=== PATIENT | male | born 1935 | race Caucasian/White ===

== ENCOUNTER 2017-04-23 10:46 | Day surgery (SDC) | payer OTHER ==
[~2017-04-23] VITALS: Ht 175.3 cm; Wt 76.6 kg
[~2017-04-23 10:46] MED LIST: ATORVASTATIN CA40 MG PO; CARDURA4 MG PO; COZAAR50 MG PO; DAILY MULTIPLE1 EACH PO; DILTIAZEM 24HR240 MG PO; FISH OIL 1,0001 EAC7 PO; NOVOLIN N100 UNITS/ SC; NOVOLIN,HU100 UNITS1 SC
[2017-04-23 11:24] LABS: POINT-OF-CARE METER ID UU14174212
[2017-04-23 11:39] VITALS: BP 153/71
[2017-04-23 18:31] LABS: POINT-OF-CARE METER ID UU13113675; POINT-OF-CARE USER ID 515036437
[2017-04-23 18:35] VITALS: BP 158/70
[2017-04-23 19:20] VITALS: BP 157/70
== END 2017-04-23 19:33 | disposition home or self-care (01) ==
LOC: SDC 10:46
PROVIDERS: Orthopaedic Surgery Sports Medicine
DX: M75.41 Impingement syndrome of right shoulder (principal); S46.011A Strain of muscle(s) and tendon(s) of the rotator cuff of right shoulder, initial encounter; M75.21 Bicipital tendinitis, right shoulder; X50.3XXA Overexertion from repetitive movements, initial encounter; Y93.H2 Activity, gardening and landscaping; Y92.007 Garden or yard of unspecified non-institutional (private) residence as the place of occurrence of the external cause; I10 Essential (primary) hypertension; E11.9 Type 2 diabetes mellitus without complications; Z79.82 Long term (current) use of aspirin; Z79.4 Long term (current) use of insulin
CPT/HCPCS: 82948; C1713; J0131; J0171; J0330; J0690; J2250; J2405; J2795